=== PATIENT | female | born 1945 ===

== ENCOUNTER 2024-03-05 11:30 | Inpatient (IN) | payer OTHER ==
[~2024-03-05] VITALS: Ht 167.6 cm; Wt 59.4 kg
[2024-03-05 12:25] VITALS: BP 120/73
[2024-03-05] MEDS ORDERED: ROSUVASTATIN CA20 MG PO (12:26)
[2024-03-05] MEDS ORDERED: MULTIPLE VITAM1 EAC2 PO (12:26)
[2024-03-05] MEDS ORDERED: CENTRUM ADULT120 MCG PO (12:27)
[2024-03-11] MEDS ORDERED: CEFTRIAXONE SODIUM 2,000 MG VIAL ONE (12:35)
[2024-03-11] MEDS ORDERED: METRONIDAZOLE/SODIUM CHLORIDE 500 MG/100 ML PIGGYBACK IV ONE (12:36)
[2024-03-11] MEDS ORDERED: BUPIVACAINE HCL/MPF 0.5% 30ML VIAL ONE (13:48)
[2024-03-11] MEDS ORDERED: LIDOCAINE HCL 1%/EPINEPHRINE 20ML VIAL IJ ONE (13:48)
[2024-03-11] MEDS ORDERED: 0.9 % SODIUM CHLORIDE 1,000 ML IV SCH (14:15)
[2024-03-11] MEDS ORDERED: OxyCODONE HCL 5 MG TABLET (ROXICODONE) PO PRN (14:15)
[2024-03-11] MEDS ORDERED: ONDANSETRON HCL 2 MG/ML VIAL IV PRN (14:15)
[2024-03-11] MEDS ORDERED: DEXTROSE 50 % IN WATER 0.5 G/ML DISP.SYRIN IV PRN (14:15)
[2024-03-11] MEDS ORDERED: MORPHINE SULFATE 4 MG/ML CARTRIDGE IV PRN (14:15)
[2024-03-11] MEDS ORDERED: SUGAMMADEX SODIUM 200 MG/2 ML VIAL IV ONE (16:17)
[2024-03-11] MEDS ORDERED: GABAPENTIN 300 MG CAPSULE PO SCH (17:00)
[2024-03-11] MEDS ORDERED: HYOSCYAMINE SULFATE 0.125 MG TAB.SUBL SL SCH (17:00)
[2024-03-11] MEDS ORDERED: METRONIDAZOLE/SODIUM CHLORIDE 500 MG/100 ML PIGGYBACK IV SCH (17:00)
[2024-03-11] MEDS ORDERED: POLYETHYLENE GLYCOL 3350 17 GM BLIST.PACK PO SCH (17:00)
[2024-03-11] MEDS ORDERED: ONDANSETRON HCL 2 MG/ML VIAL ONE (17:18)
[2024-03-11 17:51] LABS: HEMATOCRIT 38.6 % (36.0-45.00); HEMOGLOBIN 12.8 g/dL (12.0-15.00); MEAN CORPUSCULAR HEMOGLOBIN 30.6 pg (27.00-32.0); MEAN CORPUSCULAR HGB CONC 33.3 g/dl (32.0-36.0); PLATELET COUNT 172 K/uL (150-450); RED CELL DISTRIBUTION WIDTH 14.8 % (11.5-14.5)
[2024-03-11 18:11] LABS: ALBUMIN 3.1 gm/dL (3.4-5.0); CALCIUM 8.6 mg/dL (8.5-10.1); CREATININE SERUM 0.78 mg/dL (0.55-1.02); GFR 71.43; MAGNESIUM 1.9 mg/dL (1.8-2.4); PHOSPHOROUS 3.1 mg/dL (2.5-4.9); POTASSIUM 3.75 mEq/L (3.5-5.1)
[2024-03-11 18:44] VITALS: BP 121/69; O2SAT 95
[2024-03-11] MEDS ORDERED: ACETAMINOPHEN 500 MG GEL..CAP PO SCH (20:00)
[2024-03-11] MEDS ORDERED: FAMOTIDINE/PF 20 MG/2 ML VIAL IV PUSH SCH (21:00)
[2024-03-12 00:53] VITALS: BP 131/81; O2SAT 96
[2024-03-12 08:00] VITALS: BP 104/58; O2SAT 95
[2024-03-12 08:07] LABS: HEMATOCRIT 39.1 % (36.0-45.00); HEMOGLOBIN 12.9 g/dL (12.0-15.00); MEAN CELL VOLUME 91.2 fL (80.00-100.00); MEAN CORPUSCULAR HGB CONC 32.9 g/dl (32.0-36.0); RED BLOOD COUNT 4.29 M/uL (4.00-6.00); RED CELL DISTRIBUTION WIDTH 14.6 % (11.5-14.5)
[2024-03-12 08:43] LABS: PLATELET COUNT 99 K/uL (150-450)
[2024-03-12 12:32] LABS: ALBUMIN 2.8 gm/dL (3.4-5.0); CALCIUM 8.2 mg/dL (8.5-10.1); CREATININE SERUM 0.92 mg/dL (0.55-1.02); GFR 59.04; MAGNESIUM 1.7 mg/dL (1.8-2.4); POTASSIUM 4.08 mEq/L (3.5-5.1)
[2024-03-12 12:35] LABS: PHOSPHOROUS 1.8 mg/dL (2.5-4.9)
[2024-03-12] MEDS ORDERED: POTASSIUM PHOS,M-BASIC-D-BASIC 9 MM in 0.9 % SODIUM CHLORIDE 250 ML IV NR (14:30)
[2024-03-12] MEDS ORDERED: MAGNESIUM SULFATE IN WATER 50 ML IV NR (14:30)
[2024-03-12 16:00] VITALS: BP 112/56; O2SAT 99
[2024-03-12] MEDS ORDERED: ENOXAPARIN SODIUM 40 MG/0.4 ML SYRINGE SUBCUTANEO SCH (17:00)
[2024-03-13 01:14] VITALS: BP 128/60; O2SAT 98
[2024-03-13 08:00] VITALS: BP 144/80; O2SAT 98
[2024-03-13] MEDS ORDERED: ENOXAPARIN SODIUM 40 MG/0.4 ML SYRINGE SUBCUTANEO SCH (09:00)
[2024-03-13 16:00] VITALS: BP 137/62; O2SAT 95
[2024-03-14 00:53] VITALS: BP 125/71; O2SAT 95
[2024-03-14] MEDS ORDERED: HYOSCYAMINE0.125 M1 SL (10:00)
[2024-03-14] MEDS ORDERED: PEPCID AC20 MG PO (10:00)
[2024-03-14] MEDS ORDERED: TRAM1TAB98 PO (10:00)
== END 2024-03-14 11:26 | disposition home or self-care (01) | DRG 331 ==
LOC: O/R 03-11 09:26 → SURH 03-11 11:30
PROVIDERS: ADMIT Surgery; ATTEND Surgery
PROC: 07BB4ZZ Excision of Mesenteric Lymphatic, Percutaneous Endoscopic Approach (ICD-10-PCS; 2024-03-11)
PROC: 07BC4ZZ Excision of Pelvis Lymphatic, Percutaneous Endoscopic Approach (ICD-10-PCS; 2024-03-11)
PROC: 0DTF4ZZ Resection of Right Large Intestine, Percutaneous Endoscopic Approach (ICD-10-PCS; principal; 2024-03-11 21:15)
DX: C18.2 Malignant neoplasm of ascending colon (principal); D12.1 Benign neoplasm of appendix; R59.0 Localized enlarged lymph nodes; R19.5 Other fecal abnormalities; R19.4 Change in bowel habit; E78.5 Hyperlipidemia, unspecified